=== PATIENT | female | born 1990 | race Caucasian/White ===

== ENCOUNTER → 2020-07-18 | Outpatient (CLI) | payer BC ==
--- NOTE | 2020-07-18 23:34 | MR ---
EXAMINATION TYPE: MR knee LT wo con DATE OF EXAM: 07/18/2020 COMPARISON: MR 05/26/2018. HISTORY: Left knee pain, swelling, and locking since 2019 due to tripping and falling. TECHNIQUE: Multiplanar, multisequence imaging of the left knee is performed without IV contrast. FINDINGS: MEDIAL MENISCUS: Anterior and posterior horns are intact without tear. LATERAL MENISCUS: Interval wavy appearance of the anterior horn free edge without discrete tear is se en. Posterior horn is grossly intact. CRUCIATE LIGAMENTS: The anterior and posterior cruciate ligaments are intact and unremarkable. COLLATERAL LIGAMENTS: The medial collateral ligament and lateral collateral ligament complex are inta ct and unremarkable. EXTENSOR MECHANISM: Visualized quadriceps and patellar tendons are intact. EFFUSION: No significant suprapatellar joint effusion. POPLITEAL CYST: No popliteal/clements cyst. TRICOMPARTMENT SPACES: Otherwise intact. CARTILAGE: Redemonstrated moderate sized partial thickness chondral defect overlying the patellar rid ge. Medial and lateral compartment articular cartilage are grossly intact. BONE MARROW SIGNAL: Mild cystic change within the patellofemoral compartment. Otherwise no significan t bone marrow abnormality or acute fracture. OTHER: Transient lateral patellar subluxation with irregularity of the lateral patellar retinaculum, compatible with prior sprain. The TT-TG distance is within normal limits measuring approximately 8 m m. IMPRESSION: Nonspecific interval with the appearance of the lateral meniscus anterior horn free edge without disc rete tear seen. Findings may relate to locking symptoms. 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 Transient lateral patellar subluxation with prior sprain of the lateral retinaculum.
== END | disposition home or self-care (01) ==
LOC: RADMRIMAIN 16:09
PROVIDERS: ATTEND Physician Assistant
DX: M22.42 Chondromalacia patellae, left knee (principal); S83.012A Lateral subluxation of left patella, initial encounter; S83.8X2D Sprain of other specified parts of left knee, subsequent encounter; M17.12 Unilateral primary osteoarthritis, left knee

== ENCOUNTER → 2020-09-23 | Outpatient (CLI) | payer BC ==
--- NOTE | 2020-09-23 14:29 | USB ---
EXAMINATION TYPE: US breast complete BILAT DATE OF EXAM: 09/23/2020 COMPARISON: NONE CLINICAL HISTORY: N64.4 BREAST PAIN. Findings: All 4 quadrants in the retroareolar region in both breasts were scanned with ultrasound. No sonographic evidence for malignancy. No sonographic correlate for diffuse bilateral breast pain. IMPRESSION: No sonographic correlate for diffuse, bilateral breast pain. Clinical follow-up is recommended. BI-RADS 1, negative. Recommendation: Annual screening mammogram beginning at age 40 is recommended unless earlier imaging is needed due to clinical factors.
== END | disposition home or self-care (01) ==
LOC: RADMAMWWP 13:18
PROVIDERS: ATTEND Family Medicine
DX: N64.4 Mastodynia (principal)

== ENCOUNTER 2021-01-03 10:42 | Emergency (ER) | payer BC, OTHER ==
[2021-01-03 10:52] VITALS: BP 138/82; PULSE 90; RESP 18; TEMP 98.5
[2021-01-03] MEDS ORDERED: DIPH,PERTUS(ACELL)TETVAC-LF 0.5 ML VIAL IM ONE (11:16)
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
== END 2021-01-03 11:50 | disposition home or self-care (01) ==
LOC: EC 10:42
DX: S81.052A Open bite, left knee, initial encounter (principal); F17.200 Nicotine dependence, unspecified, uncomplicated; Z88.5 Allergy status to narcotic agent; Z23 Encounter for immunization; Y04.1XXA Assault by human bite, initial encounter; Y92.219 Unspecified school as the place of occurrence of the external cause; Y99.0 Civilian activity done for income or pay
CPT/HCPCS: 90471; 90715; 99282

== ENCOUNTER → 2021-09-10 | Outpatient (CLI) | payer BC ==
[2021-09-10 14:57] LABS: Estradiol 50.7 pg/mL; Follicle Stimulating Hormone 5.1 mIU/mL
== END | disposition home or self-care (01) ==
LOC: LABWHC1 09:52
PROVIDERS: ATTEND Family Medicine
DX: F43.9 Reaction to severe stress, unspecified (principal); N92.1 Excessive and frequent menstruation with irregular cycle; R63.5 Abnormal weight gain; R52 Pain, unspecified; R25.2 Cramp and spasm
CPT/HCPCS: 36415; 82040; 82533; 82670; 83001; 83002; 84144; 84270; 84403